=== PATIENT | male | born 1945 | race Caucasian/White ===

== ENCOUNTER 2018-04-18 14:30 | Inpatient (IN) | payer OTHER ==
[~2018-04-18] VITALS: Ht 172.7 cm; Wt 90.7 kg
[~2018-04-18 14:30] MED LIST: ALLUPURINOL PO; AMLODIPINE BESY10 MG PO; AVAPRO300 MG PO; CYMBALTA30 MG PO; FELDENE20 MG PO; GLIPIZIDE10 MG PO; HYDROCHLOROTHIA25 MG PO; INTEGRA PLUS C1 EACH PO; JANUVIA50 MG PO; METROPOL PO; OXYC1TAB9 PO; PNEU16DI2 IJ; TAMS0.4C PO; XARELTO10 MG PO
[2018-04-23] MEDS ORDERED: TOPROL XL100 M1 PO (08:15)
[2018-04-23] MEDS ORDERED: ZYLOPRIM300 MG PO (08:16)
[2018-05-04] MEDS ORDERED: VANCOMYCIN HCL1 GM IV (09:36)
[2018-05-04] MEDS ORDERED: XARELTO20 MG PO (09:38)
[2018-05-04] MEDS ORDERED: OXYC1TAB9 PO (09:38)
[2018-05-04] MEDS ORDERED: INTEGRA PLUS C1 EACH PO (09:38)
== END 2018-05-04 23:08 | disposition home or self-care (01) | DRG 464 ==
LOC: SURH 04-23 06:20 → O/R 04-23 06:20 → SURH 04-23 10:15
PROVIDERS: ADMIT Orthopaedic Surgery Sports Medicine
PROC: 0SHC08Z Insertion of Spacer into Right Knee Joint, Open Approach (ICD-10-PCS; 2018-04-23)
PROC: 0JBN0ZZ Excision of Right Lower Leg Subcutaneous Tissue and Fascia, Open Approach (ICD-10-PCS; 2018-04-23)
PROC: 3E10X8Z Irrigation of Skin and Mucous Membranes using Irrigating Substance (ICD-10-PCS; 2018-04-23)
PROC: 0SPC0JZ Removal of Synthetic Substitute from Right Knee Joint, Open Approach (ICD-10-PCS; principal; 2018-04-23 10:15)
PROC: B246ZZZ Ultrasonography of Right and Left Heart (ICD-10-PCS; 2018-04-28)
PROC: 3E0F7GC Introduction of Other Therapeutic Substance into Respiratory Tract, Via Natural or Artificial Opening (ICD-10-PCS; 2018-04-28)
PROC: 02HV33Z Insertion of Infusion Device into Superior Vena Cava, Percutaneous Approach (ICD-10-PCS; 2018-04-30)
DX: T84.53XA Infection and inflammatory reaction due to internal right knee prosthesis, initial encounter (principal); M00.061 Staphylococcal arthritis, right knee; R06.03 Acute respiratory distress; M10.061 Idiopathic gout, right knee; D64.89 Other specified anemias; B95.7 Other staphylococcus as the cause of diseases classified elsewhere; I48.0 Paroxysmal atrial fibrillation; E11.9 Type 2 diabetes mellitus without complications; I10 Essential (primary) hypertension; M79.7 Fibromyalgia; E78.49 Other hyperlipidemia; N40.0 Benign prostatic hyperplasia without lower urinary tract symptoms; Z96.651 Presence of right artificial knee joint; Z79.01 Long term (current) use of anticoagulants

== ENCOUNTER 2018-06-19 10:09 | Inpatient (IN) | payer OTHER ==
[~2018-06-19] VITALS: Ht 172.7 cm; Wt 99.8 kg
[~2018-06-19 10:09] MED LIST changes: +ATORVASTATIN CA20 MG PO; +CARDURA1 MG PO; +COZAAR100 MG PO; +FAMOTIDINE40 MG PO; +JANUMET XR 50-1 EAC1 PO; +TOPROL XL100 M1 PO; +VANCOMYCIN HCL1 GM IV; +XARELTO20 MG PO; +ZYLOPRIM300 MG PO
[2018-06-29] MEDS ORDERED: XARELTO15 MG PO (08:31)
[2018-06-29] MEDS ORDERED: INTEGRA PLUS C1 EACH PO (08:31)
[2018-06-29] MEDS ORDERED: CEPHALEXIN500 MG PO (08:31)
[2018-06-29] MEDS ORDERED: PERCOCET 5-3251 EACH PO (08:31)
== END 2018-06-29 11:21 | disposition home or self-care (01) | DRG 464 ==
LOC: SURH 06-25 06:51 → O/R 06-25 06:51 → SURH 06-25 09:08
PROVIDERS: ADMIT Orthopaedic Surgery Sports Medicine
PROC: 0SHC08Z Insertion of Spacer into Right Knee Joint, Open Approach (ICD-10-PCS; 2018-06-25)
PROC: 0SPC0JZ Removal of Synthetic Substitute from Right Knee Joint, Open Approach (ICD-10-PCS; principal; 2018-06-25 11:00)
DX: T84.53XA Infection and inflammatory reaction due to internal right knee prosthesis, initial encounter (principal); N17.8 Other acute kidney failure; D62 Acute posthemorrhagic anemia; M65.861 Other synovitis and tenosynovitis, right lower leg; E11.65 Type 2 diabetes mellitus with hyperglycemia; I11.9 Hypertensive heart disease without heart failure; I48.0 Paroxysmal atrial fibrillation; E78.49 Other hyperlipidemia; M79.7 Fibromyalgia; N40.0 Benign prostatic hyperplasia without lower urinary tract symptoms; Z96.651 Presence of right artificial knee joint

== ENCOUNTER 2018-07-24 14:13 | Outpatient (CLI) | payer OTHER ==
[~2018-07-24 14:13] MED LIST changes: +CEPHALEXIN500 MG PO; +PERCOCET 5-3251 EACH PO; +XARELTO15 MG PO
== END 2018-07-24 14:33 | disposition home or self-care (01) ==
LOC: LAB 14:13
DX: E11.649 Type 2 diabetes mellitus with hypoglycemia without coma (principal); L97.909 Non-pressure chronic ulcer of unspecified part of unspecified lower leg with unspecified severity